=== PATIENT | male | born 1940 | race African-American/Black ===

== ENCOUNTER 2021-01-12 08:54 | Emergency (ER) | payer MEDICARE ==
[~2021-01-12] VITALS: Ht 175.3 cm; Wt 72.6 kg
== END 2021-01-12 09:20 | disposition home or self-care (01) ==
LOC: ER 09:10
DX: Z11.1 Encounter for screening for respiratory tuberculosis (principal); I10 Essential (primary) hypertension
CPT/HCPCS: 99283